=== PATIENT | female | born 1985 | race Hispanic/Latino ===

== ENCOUNTER 2023-09-08 17:09 | Emergency (ER) | payer OTHER ==
[2023-09-08] MEDS ORDERED: Ibuprofen 200 MG TAB ONE (17:59)
== END 2023-09-08 18:13 | disposition home or self-care (01) ==
LOC: NAV ERS 17:09
DX: S39.012A Strain of muscle, fascia and tendon of lower back, initial encounter (principal); S16.1XXA Strain of muscle, fascia and tendon at neck level, initial encounter; V49.9XXA Car occupant (driver) (passenger) injured in unspecified traffic accident, initial encounter
CPT/HCPCS: 99283